=== PATIENT | female | born 2000 | race Caucasian/White ===

== ENCOUNTER 2022-03-21 19:27 | Emergency (ER) | payer OTHER ==
[~2022-03-21] VITALS: Ht 162.6 cm; Wt 84.9 kg
[2022-03-21 19:28] VITALS: BP 135/97
[2022-03-21 21:30] LABS: BASO # 0.1 10^3/uL (0.0-0.2); BASO % 0.6 % (0.0-1.0); EOS # 0.2 10^3/uL (0.0-0.5); EOS % 2.8 % (0.0-3.0); HEMATOCRIT 37.9 % (36.0-47.0); HEMOGLOBIN 12.5 g/dl (12.0-15.5); LYMPH # 3.1 10^3/uL (1.5-5.0); LYMPH % 38.5 % (24.0-44.0); MEAN CORPUSCULAR HEMOGLOBIN 31.3 pg (27.0-33.0); MEAN CORPUSCULAR VOLUME 94.8 fl (80.0-96.0); MONO # 0.4 10^3/uL (0.0-0.8); MONO % 5.5 % (2.0-8.0); NEUTROPHILS # 4.1 10^3/uL (1.5-8.5); NEUTROPHILS % 52.1 % (36.0-66.0); PLATELET COUNT, AUTOMATED 258 10^3/uL (150-450); WHITE BLOOD COUNT 7.9 10^3/uL (4.0-10.0)
[2022-03-21 22:01] LABS: BLOOD UREA NITROGEN 11 MG/DL (7-18); CALCIUM LEVEL 9.4 MG/DL (8.5-10.1); CARBON DIOXIDE LEVEL 29 MEQ/L (21-32); CHLORIDE LEVEL 105 MEQ/L (98-107); CREATININE FOR GFR 0.68 MG/DL (0.55-1.30); GLUCOSE, FASTING 98 MG/DL (70-100); POTASSIUM SERUM 4.2 MEQ/L (3.5-5.1); SODIUM LEVEL 138 MEQ/L (136-145)
[2022-03-21 23:27] LABS: HCG, SERUM QUANTITATIVE 5258 MIU/ML
== END 2022-03-22 02:02 | disposition home or self-care (01) ==
LOC: M ED 19:27
DX: O03.9 Complete or unspecified spontaneous abortion without complication (principal); Z88.0 Allergy status to penicillin; Z88.1 Allergy status to other antibiotic agents; Z3A.01 Less than 8 weeks gestation of pregnancy

== ENCOUNTER 2023-12-07 00:55 | Inpatient (IN) | payer OTHER ==
[~2023-12-07] VITALS: Ht 162.6 cm; Wt 99.5 kg
[2023-12-07] VITALS (26 sets, daily range): BP systolic 119–177; BP diastolic 65–105; O2SAT 98
[2023-12-07] MEDS ORDERED: LACTATED RINGER'S 1000 ML IV STA (02:06)
[2023-12-07] MEDS ORDERED: OXYTOCIN DRIP 30 UNITS in IV 1 EA IV PRN ×6 (02:10)
[2023-12-07] MEDS ORDERED: OXYTOCIN INJ 10UNITS/ML 1ML VIAL IM PRN (02:10)
[2023-12-07] MEDS ORDERED: LIDOCAINE 1% MDV 20ML VIAL INFIL PRN (02:10)
[2023-12-07] MEDS ORDERED: CARBOPROST TROMETHAMINE 250 MCG/ML AMP IM PRN (02:10)
[2023-12-07] MEDS ORDERED: TRANEXAMIC ACID INJection 1,000 MG in NS 100 ML IV PRN (02:10)
[2023-12-07] MEDS ORDERED: METHYLERGONOVINE MALEATE 0.2MG/ML 1ML VIAL IM PRN (02:10)
[2023-12-07] MEDS ORDERED: VANCOMYCIN HCL 1,000 MG, VIAL MATE ADAPTER 1 EACH in D5W 250 ML IV SCH ×4 (02:10→19:00)
[2023-12-07] MEDS ORDERED: VANCOMYCIN HCL 1,000 MG, VIAL MATE ADAPTER 1 EACH in D5W 250 ML IV ONE ×2 (02:30→03:30)
[2023-12-07 02:43] LABS: HEMATOCRIT 39.5 % (36.0-47.0); HEMOGLOBIN 13.4 g/dl (12.0-15.5); MEAN CORPUSCULAR HEMOGLOBIN 30.8 pg (27.0-33.0); MEAN CORPUSCULAR HGB CONC 33.9 g/dl (32.0-36.5); MEAN CORPUSCULAR VOLUME 90.8 fl (80.0-96.0); PLATELET COUNT, AUTOMATED 223 10^3/uL (150-450); RED BLOOD COUNT 4.35 10^6/uL (4.00-5.40); WHITE BLOOD COUNT 8.6 10^3/uL (4.0-10.0)
[2023-12-07] MEDS: miSOPROStol 50MCG 1/2 TABLET PO SCH ×4 (03:03→14:30)
[2023-12-07] MEDS ORDERED: * PENDING VANCOMYCIN ENTRY XX SCH (09:00)
[2023-12-07 09:30] LABS: CREATININE FOR GFR 0.61 MG/DL (0.55-1.30); GLOMERULAR FILTRATION RATE > 60.0 (>60)
[2023-12-07] MEDS: LR 1,000 ML IV SCH ×2 (10:10→15:10)
[2023-12-07] MEDS ORDERED: PROMETHAZINE 25MG/ML 1ML VIAL IV ONE (10:25)
[2023-12-07] MEDS ORDERED: BUTORPHANOL 2 MG/ML 1ML VIAL IV ONE (10:25)
[2023-12-07] MEDS ORDERED: ePHEDrine SULFATE 25 MG/5 ML(5MG/ML) SYRINGE IVP PRN (14:30)
[2023-12-07] MEDS ORDERED: diphenhydrAMINE 50MG/ML VIAL IV PRN (14:30)
[2023-12-07] MEDS ORDERED: ONDANSETRON 4MG 2ML VIAL IV PRN (14:30)
[2023-12-07] MEDS ORDERED: EPIDURAL/PCA KEYS XX PRN (14:30)
[2023-12-07] MEDS ORDERED: NALOXONE INJ 0.4MG/1ML VIAL IV PRN (14:30)
[2023-12-07] MEDS ORDERED: FENTANYL/ROPIVACAINE/NACL BAG 100 ML EPIDURAL SCH (14:30)
[2023-12-07] MEDS ORDERED: LR 500 ML IV PRN (14:30)
[2023-12-07] MEDS ORDERED: OXYTOCIN DRIP 30 UNITS in IV 1 EA IV SCH (18:30)
[2023-12-07] MEDS ORDERED: RHOGAM 300MCG (1500IU) INJ IM SCH (21:00)
[2023-12-07] MEDS ORDERED: IBUPROFEN 800 MG TAB PO PRN (21:00)
[2023-12-07] MEDS ORDERED: ANUSOL HC CREAM 30GM TOP PRN (21:00)
[2023-12-07] MEDS ORDERED: ACETAMINOPHEN 500 MG TAB PO PRN (21:00)
[2023-12-07] MEDS ORDERED: DIBUCAINE 1% OINTMENT 30GM TOP PRN (21:00)
[2023-12-07] MEDS ORDERED: MOM 30ML SUSPENSION UDC PO PRN (21:00)
[2023-12-07] MEDS ORDERED: DOCUSATE SODIUM 100MG CAPSULE PO PRN (21:00)
[2023-12-08 06:00] VITALS: BP 134/85; O2SAT 99
[2023-12-08] MEDS: PRENATAL VITAMINS CHEWABLE TABLET PO SCH (09:02)
[2023-12-08 18:00] VITALS: BP 126/82; O2SAT 99
[2023-12-09 06:42] VITALS: BP 134/78; O2SAT 98
[2023-12-09] MEDS ORDERED: ACET-683 PO (07:50)
[2023-12-09] MEDS ORDERED: PRENCHW PO (07:51)
[2023-12-09] MEDS ORDERED: COLA100C5 PO (07:51)
[2023-12-09] MEDS ORDERED: IBUP80TA PO (07:51)
[2023-12-09] MEDS: PRENATAL VITAMINS CHEWABLE TABLET PO SCH (08:04)
[2023-12-09] MEDS ORDERED: MEASLES,MUMPS,RUBELLA VACCINE INJ (MMR-II) SC.IMMUN ONE (09:00)
== END 2023-12-09 11:20 | disposition home or self-care (01) | DRG 807 ==
LOC: M LDO 00:55 → M LDI 02:11 → M OBS 22:45
PROVIDERS: ADMIT Obstetrics & Gynecology; ATTEND Obstetrics & Gynecology
PROC: 10E0XZZ Delivery of Products of Conception, External Approach (ICD-10-PCS; principal; 2023-12-07)
PROC: 3E0P7GC Introduction of Other Therapeutic Substance into Female Reproductive, Via Natural or Artificial Opening (ICD-10-PCS; 2023-12-07)
PROC: 0UQMXZZ Repair Vulva, External Approach (ICD-10-PCS; 2023-12-07)
PROC: 0UQKXZZ Repair Hymen, External Approach (ICD-10-PCS; 2023-12-07)
DX: O42.02 Full-term premature rupture of membranes, onset of labor within 24 hours of rupture (principal); Z37.0 Single live birth; O99.824 Streptococcus B carrier state complicating childbirth; Z3A.39 39 weeks gestation of pregnancy; O24.420 Gestational diabetes mellitus in childbirth, diet controlled; O64.5XX0 Obstructed labor due to compound presentation, not applicable or unspecified; O71.82 Other specified trauma to perineum and vulva

== ENCOUNTER 2024-05-22 12:13 | Emergency (ER) | payer OTHER ==
[~2024-05-22] VITALS: Ht 162.6 cm; Wt 90.9 kg
[~2024-05-22 12:13] MED LIST: ACET-683 PO; COLA100C5 PO; IBUP80TA PO; PRENCHW PO
[2024-05-22] MEDS ORDERED: CAMILA PO (12:29)
[2024-05-22] MEDS: diphenhydrAMINE 50MG CAP PO ONE (15:45)
[2024-05-22] MEDS: FAMOTIDINE 20 MG TAB PO ONE (15:45)
[2024-05-22] MEDS: predniSONE 20 MG TAB PO ONE (15:45)
[2024-05-22] MEDS: ALBUTEROL SULFATE 2.5MG/0.5ML INH NEB SOLN NEB ONE (17:19)
[2024-05-22] MEDS ORDERED: HYDR-643 PO (17:43)
[2024-05-22] MEDS ORDERED: CETI10CH PO (17:43)
[2024-05-22] MEDS ORDERED: PEPC1TAB5 PO (17:43)
[2024-05-22] MEDS ORDERED: PRED20TA PO (17:43)
[2024-05-22 17:56] VITALS: BP 123/78; TEMP 98.6; O2SAT 98
== END 2024-05-22 17:58 | disposition home or self-care (01) ==
LOC: M ED 12:13
DX: T78.40XA Allergy, unspecified, initial encounter (principal); L50.9 Urticaria, unspecified; Z88.0 Allergy status to penicillin; Z88.1 Allergy status to other antibiotic agents; Z79.899 Other long term (current) drug therapy; Z79.52 Long term (current) use of systemic steroids
CPT/HCPCS: 99283; J7512